=== PATIENT | male | born 1980 | race Asian ===

== ENCOUNTER 2017-09-12 16:30 | Emergency (ER) | payer BC ==
[2017-09-12 16:45] VITALS: BP 137/69; PULSE 79; TEMP 98.6; BMI 25.9
--- NOTE | 2017-09-12 16:45 | PDOC ---
Rapid Medical Evaluation Chief Complaint: Pain Time Seen by Provider: 09/12/17 16:40 Medical Evaluation: 09/12/17 16:41 I have performed a brief in-person evaluation of this patient. The patient presents with a chief complaint of:L elbow pain x several months, worsened during - yesterday. 1st time seeking medical eval today Pertinent physical exam findings:+ ttp over L olecranon, no swelling I have ordered the following:xray The patient will proceed to the ED for further evaluation. Discharge Disposition - Diagnosis Left elbow pain - Referrals - Patient Instructions - Post Discharge Activity
--- NOTE | 2017-09-12 18:03 | PDOC ---
History of Present Illness - General Chief Complaint: Pain Stated Complaint: ARM PAIN Time Seen by Provider: 09/12/17 16:40 History Source: Patient Exam Limitations: No Limitations - History of Present Illness Initial Comments: 09/12/17 17:58 37-year-old male without significant past medical history presents emergency Department with elbow pain for the past "few months." Patient states she has had left elbow pain which is decreased his activity levels for the past 3 months. Patient states pain worsens with full extension of his left elbow. Patient states the pain became increasingly worse while performing juLE TOTEu moves. He states he felt a sharp pain to his left elbow which was shooting down to his left hand decreasing his sensation for approximately one hour. He states his sensation is return to normal after the first hour but he remains weak in that arm. He denies any direct trauma. Past History - Past Medical History Allergies/Adverse Reactions: Allergies Allergy/AdvReac Type Severity Reaction Status Date / Time No Known Allergies Allergy Verified 09/12/17 16:45 Home Medications: Ambulatory Orders NK [No Known Home Medication] 09/12/17 - Suicide/Smoking/Psychosocial Hx Smoking History: Never smoked Have you smoked in the past 12 months: No Information on smoking cessation initiated: No Hx Alcohol Use: No Drug/Substance Use Hx: No Review of Systems - Review of Systems Able to Perform ROS?: Yes Is the patient limited Citizen [place] proficient: No Constitutional: No: Symptoms Reported HEENTM: No: Symptoms Reported Respiratory: No: Symptoms reported Cardiac (ROS): No: Symptoms Reported ABD/GI: No: Symptoms Reported : No: Symptoms Reported Musculoskeletal: Yes: See HPI Integumentary: No: Symptoms Reported Neurological: No: Symptoms reported Endocrine: No: Symptoms Reported Hematologic/Lymphatic: No: Symptoms Reported *Physical Exam - Vital Signs Last Vital Signs Temp Pulse Resp BP Pulse Ox 98.6 F 79 16 137/69 100 09/12/17 16:41 09/12/17 16:41 09/12/17 16:41 09/12/17 16:41 09/12/17 16:41 - Physical Exam General Appearance: Yes: Appropriately Dressed. 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 Patient with weakness 3/5 and increased pain with extension of left elbow against resistance X-rays, reassess 09/12/17 18:10 X-rays as read by me: No fracture is visualized. No sail sign present. I discussed the physical exam findings, ancillary test results and final diagnoses with the patient. I answered all of the patient's questions. The patient was satisfied with the care received and felt comfortable with the discharge plan and treatment plan. The patient will call orthopedist within 72 hours to arrange follow-up and will return to the Emergency Department with any new, persistent or worsening symptoms. *DC/Admit/Observation/Transfer Diagnosis at time of Disposition: Left elbow pain - Discharge Dispostion Disposition: HOME Condition at time of disposition: Stable Decision to Admit order: No - Referrals Referrals: Paras Turner MD [Staff Physician] - - Patient Instructions Additional Instructions: Take Tylenol or Motrin as needed for pain. Follow manufacturers instructions for appropriate dosage. Apply ice for 20 minutes and removed for at least 20 minutes before reapplying the ice. You've been given the number for an orthopedist. If symptoms do not resolve within the next 7 days call the orthopedist for further evaluation. Return to emergency department for any concerns. Thank you very much for choosing us to provide your emergent healthcare needs. - Post Discharge Activity
== END 2017-09-12 18:23 | disposition home or self-care (01) ==
LOC: JERFT 16:30
DX: M25.522 Pain in left elbow (principal)
CPT/HCPCS: 73070-TC-LT-FY; 99281-25